=== PATIENT | female | born 1985 | race Caucasian/White ===

== ENCOUNTER 2018-04-14 01:18 | Inpatient (IN) | payer BC ==
--- NOTE | 2018-04-14 02:27 | PCM.LDHP ---
L&D History of Present Illness - General Date of Service: 04/14/18 Admit Problem/Dx: Admission Diagnosis/Problem Admission Diagnosis/Problem 04/14/18 02:17 32-year-old 2 para 1001 white female with an ELISHA of 04/21/2018 at 39-0/7 weeksin active labor with contractions every 3 minutes and change in cervix from 2-4 cm. Source of Information: Patient History Limitations: Reports: No Limitations - History of Present Illness Introduction:: Brooklyn is a 32-year-old 2 para 1001 white female was admitted to labor and delivery with contractions every 3 minutes. Labor onset during the course of the evening of 04/13/2018. She is presently at 39-0/7 weeks gestational age. Her cervix has changed from 2 cm to approximately 4 cm. Tractions are moderate and patient was breathing through them.. Membranes are intact and there is no significant evidence of bloody show. The patient desires a natural labor. 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 Certain last menstrual period was on 07/15/2017. Patient's cycles occur on a daily 28-30 day basis. Menarche age 16. Patient had 2 ultrasounds on 10/16/2017 and 12/01/2017 both supportive of her ELISHA. This delivery was on 12/03/2014 at 40 weeks gestational age after 8 hours of labor. She delivered a 6 lbs. 7 oz. female infant named Debra Rivas. course is relatively unremarkable. Her first visit was on 10/16/2017 at 13-2/7 weeks gestational age. Weight gain was from 119.8 pounds up to 145.2 pounds for approximately 25 pound increase. She plans to breast-feed. She is Rh - with a negative blood and had RhoGAM given at the end of second trimester. She received her T dap immunization on 03/16/2018. She declined genetic testing. She is group B strep negative. Laboratory testing and shows blood to be A- with negative antibody screen. Hemoglobin first medical visit was 12.5 and platelets are 248,000. Her rubella titer was equivocal. RPR is nonreactive. Urine culture was negative. Hepatitis B surface antigen and HIV assays were both negative. Chlamydia and gonorrhea were both negative. Second trimester labs showed a hemoglobin of 11.6 and platelets of 238,000. Her 1 hour GTT was normal at 128. Antibody screen was negative and RhoGAM was given on 02/02/2018. Group B strep screen on 03/26/2018 was negative. Allergies: none Medications: 1. vitamins daily Past medical history: 1. Normal spontaneous vaginal delivery 12/03/2014. 2. Abnormal Pap smear with colposcopy 2014. Family history: Mother is alive with hyperthyroidism. Father is alive and well. Maternal grandmother secondary to leukemia. Maternal grandfather secondary to old age. Paternal grandmother with history of liver canceris alive. Paternal grandfather secondary to unknown causes. She has 2 sisters who are alive and well. There are no , bleeding, clotting or anesthesia problems noted in the family. Social history: Patient is . She works at [employer]. She does not use any significant amounts of alcohol, drugs tobacco. 's name is Danish henderson and she lives in [facility]. Review of systems: In general patient has no complaints other than contractions. Baby has been active. Skin: Negative Lungs: No infectious symptoms or shortness of breath Cardiovascular: No chest pain or exercise intolerance Breasts: No lumps, changes in size other than those associated with , pain, dimpling, discharge or axillary or supraclavicular concerns. GI: Negative : Negative Musculoskeletal: Negative Neurological: Negative In general the patient is well-developed, well-nourished, pleasant female of stated age in no acute distress. She is abimael and occasionally is breathing through some contractions. Skin is warm dry without lesions. HEENT, neck and back within normal limits. Lungs are clear with good breath sounds in all lung ribera. Cardiovascular exam shows regular and rhythm without murmurs. Abdomen is flat, soft, nontender without masses or organomegaly. Positive bowel sounds are noted. No inguinal lymphadenopathy or hernias are noted. Genital-cervix is 3 cm, 90% effaced, very soft, posterior. Bag perez is intact. Baby is in cephalic presentation at a -2 station.. Extremities and neurological exam are grossly within normal limits. - Related Data Allergies/Adverse Reactions: Allergies Allergy/AdvReac Type Severity Reaction Status Date / Time No Known Allergies Allergy Verified 12/02/14 17:43 Home Medications: Home Meds Acetaminophen [Tylenol] 650 mg PO Q6H PRN #50 tablet 12/04/14 [Rx] Benzocaine/Menthol [Dermoplast Pain Relief [place]] 1 spray TOP ASDIRECTED PRN #1 canister 12/04/14 [Rx] Docusate Sodium [Colace] 100 mg PO BID PRN #50 cap 12/04/14 [Rx] Ibuprofen [Motrin] 200 - 600 mg PO Q6H PRN #50 tablet 12/04/14 [Rx] Lanolin [Lansinoh HPA] 1 applic TOP ASDIRECTED PRN #1 crm 12/04/14 [Rx] H&P Review of Systems - Review of Systems: Review Of Systems: See Below L&D Exam - Exam Exam: See Below Problem List Initiated/Reviewed/Updated: Yes Assessment/Plan Comment:: 1. 39-0/7 week intrauterine , spontaneous labor with change in cervix. 2. Group B strep screen negative 3. Rubella titer equivocalpatient is candidate for MMR after delivery . Patient plans to breast-feed 5. Patient desires natural labor 6. A- blood. Patient has received Rh immunoglobulin at the end of the second trimester of . She is a Rh immunoglobulin candidate if baby's blood is Rh+. Plan: 1. Anticipate normal spontaneous vaginal delivery 2. Routine labor care. Patient has a plan which has been approved by myself as modified. 3. Intermittent monitoring 4. Conservative management of labor pain. 5. We'll establish IV access 6. MMR after delivery if patient is accepting.
[2018-04-14] MEDS ORDERED: Ondansetron 4 MG/2 ML SDV IVPUSH PRN (03:05)
[2018-04-14] MEDS ORDERED: Nalbuphine 20 MG/ML 1 ML Syringe IVPUSH PRN (03:05)
[2018-04-14] MEDS ORDERED: Sodium Chloride 0.9% 10 ML Syringe FLUSH PRN (03:05)
[2018-04-14] MEDS ORDERED: Oxytocin/Lactated Ringers 10 UNIT/1,000 ML BAG IV SCH (03:15)
[2018-04-14] MEDS ORDERED: Lactated Ringers 1,000 ML IV SCH (03:15)
--- NOTE | 2018-04-14 20:01 | PCM.SN ---
- Free Text/Narrative Note: Brooklyn is a 32-year-old 2 now para 2002 white female was admitted in the picc nurse hours of 04/14/2018 in early active labor. Desired a natural labor,, no pain control and minimal intervention if possible. Intermittent monitoring was undertakenand patient was allowed to labor slowly. She progressed to complete cervical dilation approximately 1930 hrs. on 04/14/2018. heart tones per limited intermittent monitoring as per desire patient showed a reassuring pattern. patient used the hypnobirthing technique for analgesia. She had IV access with a saline lock. The patient delivered in a right lateral recumbent position. She delivered a viable, garcia, female spontaneously at 2005 hrs. on 04/15/2018. Patient had no lacerations. The baby weighed 5 lbs. 15 oz., had Apgars of 8 and 9. Patient did well. Mom breast-fed shortly after . Pitocin was given IV to facilitate increased uterine tone and decrease uterine bleeding. Placenta delivered spontaneously in a Biggs presentation. Cord had 3 vessels appeared normal. Placenta was discarded per patient desire. No lacerations occurred, therefore no stitches were necessary. Estimated blood loss was 100 mL. Condition good.
[2018-04-14] MEDS ORDERED: Lidocaine 1% 50 ML MDV ONE (20:11)
[2018-04-14] MEDS ORDERED: Acetaminophen 325 MG Tab PO PRN (22:11)
[2018-04-14] MEDS ORDERED: Lanolin 100% Cream 7 GM Tube TOP PRN (22:11)
[2018-04-14] MEDS ORDERED: Benzocaine/Menthol 20%-0.5% Spray 56 GM Canister TOP PRN (22:11)
[2018-04-14] MEDS ORDERED: Docusate Sodium 100 MG Cap PO PRN (22:11)
[2018-04-14] MEDS ORDERED: Witch Hazel Medicated Pads 100/Jar TOP PRN (22:11)
--- NOTE | 2018-04-15 06:49 | PCM.SN ---
- Free Text/Narrative Note: note: Patient is doing well in the period. Minimal lochia, voiding well, ambulated without problems. Nursing without concerns. Patient is afebrile, vital signs are stable Abdomen is flat, soft, uterus is below the umbilicus and is firm and nontender. Legs are nontender. Assessment: recovery going well. Plan: Routine care. Patient be discharged home within the next 24-48 hours.
[2018-04-15] MEDS ORDERED: Prenatal Multivitamin with Calcium/Folic Acid/Iron Tab PO SCH (09:00)
[2018-04-15] MEDS: Ibuprofen 600 MG Tab PO PRN (11:44)
[2018-04-16] MEDS: Ibuprofen 600 MG Tab PO PRN (02:48)
[2018-04-16 04:53] VITALS: BP 124/78
--- NOTE | 2018-04-16 07:27 | PCM.SN ---
- Free Text/Narrative Note: Post Progress Note PPD # 2 Subjective: Doing well overall. Ambulating without difficulty. Lochia minimal. Voiding without difficulty. Tolerating regular diet without nausea or vomiting. Pain controlled with oral medications. Breast feeding with minimal difficulty. Objective: Vitals: Vital Signs - 24 hr 04/15/18 04/15/18 04/15/18 08:37 13:35 22:37 Temperature 36.7 C 36.9 C 36.7 C Pulse, 86 76 60 Peripheral Respiratory 16 16 15 Rate Blood Pressure 135/72 125/75 103/56 L O2 Sat by Pulse 99 99 95 Oximetry 04/16/18 04:32 Temperature 36.9 C Pulse, 61 Peripheral Respiratory 15 Rate Blood Pressure 124/78 O2 Sat by Pulse 99 Oximetry Physical Exam General: Alert and oriented, no acute distress Lungs: Clear to auscultation bilaterally Heart: Regular rate and rhythm Abdomen: Soft, minimal appropriate tenderness, non-distended, fundus midline, nontender, and 2 finger breaths below the umbilicus Extremities: Trace edema in bilateral lower extremities to mid shins ASSESSMENT: 32-year-old female s/p normal vaginal delivery PPD #2, complicated by Rh- status, rubella nonimmune PLAN: Doing well Breast feeding with minimal difficulty. Assist as needed Lochia minimal. Continue to monitor for appropriate lochia. Continue routine care Patient with A- blood type and with a positive blood type. Patient given RhoGAM on day #1. Anticipate discharge home today Jcarlos Reeder MD 7:26 AM 04/16/2018
--- NOTE | 2018-04-16 07:35 | PCM.DCSUM1 ---
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 Desired a natural labor,, no pain control and minimal intervention if possible. Intermittent monitoring was undertakenand patient was allowed to labor slowly. She progressed to complete cervical dilation approximately 1930 hrs. on 2018. heart tones per limited intermittent monitoring as per desire patient showed a reassuring pattern. patient used the hypnobirthing technique for analgesia. She had IV access with a saline lock. the patient delivered in a right lateral recumbent position. She delivered a viable, garcia, -year-old now para female who was admitted on in a active labor. She has an ELISHA of by early ultrasound and LMP. She progressed steadily in labor to complete cervical dilation and delivered hrs.. She delivered a viable, garcia, g ( lbs. oz.), inch long infant in a occiput anterior position, over an intact perineum. The baby was placed on mom's abdomen and nose and mouth bulb suctioned. The cord was allowed to pulsate with delayed cord clamping. The cord was then clamped 2 by myself and was cut by the baby's father. Cord blood was obtained. Pitocin was started IV to facilitate increase in uterine tone and decrease risk of bleeding. Evaluation of the perineum revealed no significant lacerations and no suturing was required. The placenta delivered at hrs. in a Biggs fashion, appeared intact and complete and was discarded per patient desire. Estimated blood loss was mL. Patient plans to breast feed. 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 Desired a natural labor,, no pain control and minimal intervention if possible. 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 Desired a natural labor,, no pain control and minimal intervention if possible. Intermittent monitoring was undertakenand patient was allowed to labor slowly. She progressed to complete cervical dilation approximately 1930 hrs. on 2018. heart tones per limited intermittent monitoring as per desire patient showed a reassuring pattern. patient used the hypnobirthing technique for analgesia. She had IV access with a saline lock. the patient delivered in a right lateral recumbent position. She delivered a viable, garcia, -year-old now para female who was admitted on in a active labor. She has an ELISHA of by early ultrasound and LMP. She progressed steadily in labor to complete cervical dilation and delivered hrs.. She delivered a viable, garcia, g ( lbs. oz.), inch long in a occiput anterior position, over an intact perineum. The baby was placed on mom's abdomen and nose and mouth bulb suctioned. The cord was allowed to pulsate with delayed cord clamping. The cord was then clamped 2 by myself and was cut by the baby's father. Cord blood was obtained. Pitocin was started IV to facilitate increase in uterine tone and decrease risk of bleeding. Evaluation of the perineum revealed no significant lacerations and no suturing was required. The placenta delivered at hrs. in a Biggs fashion, appeared intact and complete and was discarded per patient desire. Estimated blood loss was mL. Patient plans to breast feed. 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 Desired a natural labor,, no pain control and minimal intervention if possible. 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 Desired a natural labor,, no pain control and minimal intervention if possible. Intermittent monitoring was undertakenand patient was allowed to labor slowly. She progressed to complete cervical dilation approximately 1930 hrs. on 04/14/2018. heart tones per limited intermittent monitoring as per desire patient showed a reassuring pattern. patient used the hypnobirthing technique for analgesia. She had IV access with a saline lock. the patient delivered in a right lateral recumbent position. She delivered a viable, garcia,. . -year-old . now para. female who was admitted on. in a active labor. She has an ELISHA of. by early ultrasound and LMP. She progressed steadily in labor to complete cervical dilation and delivered. hrs.. She delivered a viable, garcia,. g (. lbs. oz.),. inch long. in a. occiput anterior position, over an intact perineum. The baby was placed on mom's abdomen and nose and mouth bulb suctioned. The cord was allowed to pulsate with delayed cord clamping. The cord was then clamped 2 by myself and was cut by the baby's father. Cord blood was obtained. Pitocin was started IV to facilitate increase in uterine tone and decrease risk of bleeding. Evaluation of the perineum revealed no significant lacerations and no suturing was required. The placenta delivered at. hrs. in a Biggs fashion, appeared intact and complete and was discarded per patient desire. Estimated blood loss was. mL. Patient plans to breast feed. 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 Desired a natural labor,, no pain control and minimal intervention if possible. Intermittent monitoring was undertaken Diagnosis: Stroke: No - Discharge Data Discharge Date: 04/16/18 Discharge Disposition: Home, Self-Care 01 Condition: Good - Discharge Diagnosis/Problem(s) (1) 39 weeks gestation of SNOMED Code(s): 43638675 ICD Code: Z3A.39 - 39 WEEKS GESTATION OF Status: Acute Current Visit: Yes (2) Rh negative status during SNOMED Code(s): 837982898 ICD Code: O26.899 - OTH RELATED CONDITIONS, UNSPECIFIED TRIMESTER; Z67.91 - UNSPECIFIED BLOOD TYPE, RH NEGATIVE Status: Acute Current Visit: Yes (3) Rubella nonimmune status, delivered, current hospitalization SNOMED Code(s): 836723050 ICD Code: O99.89 - OTH DISEASES AND CONDITIONS COMPL PREG/CHLDBRTH; Z28.3 - UNDERIMMUNIZATION STATUS Status: Acute Current Visit: Yes (4) Vaginal delivery SNOMED Code(s): 034189790 ICD Code: O80 - ENCOUNTER FOR FULL-TERM UNCOMPLICATED DELIVERY Status: Acute Current Visit: Yes - Patient Summary/Data Complications: None Consults: None - Patient Instructions Diet: Regular Diet as Tolerated Activity: Apply Ice, As Tolerated Activity, Other: Nothing in the vagina for 6 weeks Driving: May Drive Today Showering/Bathing: May Shower Notify Provider of: Fever, Increased Pain, Swelling and Redness, Drainage, Nausea and/or Vomiting Other/Special Instructions: Please contact your physician's office if you have heavy vaginal bleeding enough to soak a pad in less than an hour for several hours. Monitor for any signs of an infection in the breasts with severe pain or redness of the breast. - Discharge Plan *PRESCRIPTION DRUG MONITORING PROGRAM REVIEWED*: Not Applicable *COPY OF PRESCRIPTION DRUG MONITORING REPORT IN PATIENT TOMASA: Not Applicable Home Medications: Home Meds Acetaminophen [Tylenol] 650 mg PO Q6H PRN tablet 04/16/18 [Rx] Benzocaine/Menthol [Dermoplast Pain Relief [place]] 1 spray TOP ASDIRECTED PRN canister 04/16/18 [Rx] Docusate Sodium [Colace] 100 mg PO BID PRN cap 04/16/18 [Rx] Ibuprofen [Motrin] 600 mg PO Q6H PRN tablet 04/16/18 [Rx] Lanolin [Lansinoh HPA] 1 applic TOP ASDIRECTED PRN tube 04/16/18 [Rx] Vit with Ca/FA/Iron [ Plus Iron] 1 each PO DAILY tablet [Rx] Poncho Riceel [Tucks] 1 pad TOP ASDIRECTED PRN pad 04/16/18 [Rx] - Discharge Summary/Plan Comment DC Time >30 min.: No - Patient Data Vitals - Most Recent: Last Vital Signs Temp 36.9 C 04/16/18 04:32 Pulse 61 04/16/18 04:32 Resp 15 04/16/18 04:32 BP 124/78 04/16/18 04:32 Pulse Ox 99 04/16/18 04:32 Weight - Most Recent: 66.134 kg I&O - Last 24 hours: Intake & Output 04/15/18 04/16/18 04/16/18 22:59 06:59 14:59 Intake Total 201 Balance 201 Lab Results - Last 24 hrs: Laboratory Results - last 24 hr 04/15/18 Range/Units 07:54 Blood Type A NEGATIVE Gel Antibody Screen Positive Screen 0 ros/5 flds - neg RhIG Candidate? Yes Rhogam Indicated Yes, baby rh pos H Med Orders - Current: Current Medications Acetaminophen (Tylenol) 650 mg PO Q4H PRN PRN Reason: mild pain or fever Benzocaine/Menthol (Dermoplast Pain Relief [place]) 0 gm TOP ASDIRECTED PRN PRN Reason: Perineal Comfort Measure Last Admin: 04/15/18 08:38 Dose: 1 spray Docusate Sodium (Colace) 100 mg PO BID PRN PRN Reason: Constipation Emollient Ointment (Lansinoh Hpa) 0 gm TOP ASDIRECTED PRN PRN Reason: Sore Nipples Ibuprofen (Motrin) 600 mg PO Q4H PRN PRN Reason: Mild pain or fever Last Admin: 04/16/18 02:48 Dose: 600 mg Prenat Multivit/[place]/Iron/Folic Ac ( Plus Iron) 1 each PO DAILY [facility] Last Admin: 04/15/18 08:38 Dose: 1 each Witch Dilia (Tucks) 1 pad TOP ASDIRECTED PRN PRN Reason: Hemorrhoid pain Discontinued Medications Lactated Ringer's (Ringers, Lactated) 1,000 mls @ 100 mls/hr IV ASDIRECTED [facility] Last Admin: 04/14/18 03:53 Dose: 999 mls/hr Oxytocin/Lactated Ringer's (Pitocin In Lr 10 Units/1,000 Ml) 10 unit in 1,000 mls @ 500 mls/hr IV .CONTINUOUS [facility] Lidocaine HCl (Xylocaine 1%) Confirm Administered Dose 50 ml .ROUTE .[facility] Stop: 04/14/18 20:12 Nalbuphine HCl (Nubain) 10 mg IVPUSH Q2H PRN PRN Reason: pain Ondansetron HCl (Zofran) 4 mg IVPUSH Q4H PRN PRN Reason: Nausea/Vomiting Sodium Chloride (Saline Flush) 10 ml FLUSH ASDIRECTED PRN PRN Reason: Keep Vein Open
== END 2018-04-16 11:30 | disposition home or self-care (01) | DRG 560 ==
LOC: JD.OB 01:18 → JD.OBCHECK 01:18 → JD.OB 03:06 → OBSVTOIN 20:05 → JD.OB 20:06
PROVIDERS: ADMIT Obstetrics & Gynecology; ATTEND Obstetrics & Gynecology
PROC: 10907ZC Drainage of Amniotic Fluid, Therapeutic from Products of Conception, Via Natural or Artificial Opening (ICD-10-PCS; principal; 2018-04-14)
PROC: 10E0XZZ Delivery of Products of Conception, External Approach (ICD-10-PCS; principal; 2018-04-14)
PROC: 3E0234Z Introduction of Serum, Toxoid and Vaccine into Muscle, Percutaneous Approach (ICD-10-PCS; 2018-04-15)
DX: O26.893 Other specified pregnancy related conditions, third trimester (principal); Z67.11 Type A blood, Rh negative; Z3A.39 39 weeks gestation of pregnancy; Z37.0 Single live birth; Z28.3 Underimmunization status
CPT/HCPCS: 36415; 59025; 59409; 85461; 86592; 86850; 86870; 86900; 86901; A9270-GY; J2790; J7120